=== PATIENT | female | born 1945 | race Caucasian/White ===

== ENCOUNTER → 2017-08-29 | Outpatient (CLI) | payer MEDICARE, BC ==
--- NOTE | 2017-08-29 18:03 | Diagnostic Imaging Report ---
PROCEDURE:CT CHEST WITHOUT CONTRAST COMPARISON:None. INDICATIONS:CHRONIC COUGH TECHNIQUE: Axial CT images of the chest were obtained from the apices through the adrenal glands. Coronal and sagittal reformations were made available for review. No intravenous contrast was administered. RADIATION DOSE: Total DLP: 421.5 mGy*cm Estimated effective dose: (DLP x 0.014 x size factor) mSv FINDINGS: Lungs: Right lung: Nodular apical pleural parenchymal thickening is present. The lung is diffusely hyperinflated with small areas of air trapping. Multiple ground glass nodules with and without central cavitation in the lower lobe and right middle lobe measuring up to 10 mm. There is diffuse bronchial wall thickening. The no evidence of lobular consolidation. Left lung: Diffusely hyperinflated with apical pleural-parenchymal thickening. Multiple nodules within without central cavitation measure up to 10 mm. These are mostly in the posterior lower lobe but also within the lingula. No lobar consolidation. Pleural based soft tissue nodule (image 32) in the left upper lobe measures 7 mm. Pleura:No evidence of pleural effusion or pneumothorax. Heart \T\ Mediastinum:The heart is normal in size with prominence of the pericardial fat pad. Coronary artery calcifications are present. The aortic arch is mildly ectatic. No pericardial effusion. The esophagus is normal. Lymph nodes:No enlarged axillary, supraclavicular lymph nodes. Upper mediastinal lymph nodes measure up to 17 mm. Right paratracheal lymph nodes measure to 10 mm. Lymph nodes in the AP window measure up to 1.5 x 1.1 cm. Subcarinal lymph node measures 10 mm in short axis. Thyroid/base of neck: Unremarkable. Upper abdomen:A low-attenuation lesion in the left lobe of the liver measures 7 x 7 mm. The visualized portion of the gallbladder, pancreas, spleen, adrenal glands, and kidneys are unremarkable Musculoskeletal: A compression deformity of T10 is about 30%. There is superior endplate compression deformities associated with Schmorl's nodes of T11 and T12. The spinal canal is widely patent. There are no lytic lesions. CONCLUSION: 1. Multiple cavitary and non-cavitary nodules in the lower lung zones. The differential is extensive and includes infection, such as bacterial or fungal pneumonia, vascular entities such as endocarditis or vasculitis, and autoimmune etiologies such as rheumatoid nodules or Robert's granulomatosis. Carcinoma is also included in the differential. 2. COPD. Bilateral apical pleural-parenchymal thickening should be monitored to confirm stability. 3. Prominent mediastinal lymph nodes are likely reactive. 4. Compression fracture of T10. 5. Low attenuating hepatic lesion is likely a cyst. Dictated by: Nicola Reyes M.D. on 08/29/2017 at 18:11 Electronically approved by: Nicola Reyes M.D. on 08/29/2017 at 18:11
== END ==
LOC: CT 16:31
PROVIDERS: ATTEND Family Medicine
DX: R05 Cough (principal)
CPT/HCPCS: 71250

== ENCOUNTER → 2023-01-29 | Outpatient (CLI) | payer MEDICARE, BC | LOC: CT 12:19 | PROVIDERS: ATTEND Family Medicine | DX: R05.9 Cough, unspecified (principal) | CPT/HCPCS: 71250 ==

== ENCOUNTER 2024-06-21 10:16 | Inpatient (IN) | payer MEDICARE, BC ==
[~2024-06-21] VITALS: Ht 165.1 cm; Wt 63.5 kg
[2024-06-21] MEDS ORDERED: SODIUM CHLORIDE 0.9% 1000ML 1,000 ML IV SCH (10:45)
[2024-06-21 10:54] LABS: BASOPHILS # (AUTO) 0.1 (0.0-0.1); BASOPHILS % 0.8 % (0.0-1.0); EOSINOPHILS # (AUTO) 0.3 (0.0-0.4); EOSINOPHILS % 3.1 % (0.0-6.0); HEMATOCRIT 35.6 % (34.2-44.1); HEMOGLOBIN 11.3 g/dL (12.0-16.0); MEAN CORPUSCULAR HEMOGLOBIN 28.6 pg (28-32); MEAN CORPUSCULAR HGB CONC 31.7 g/dL (31-35); MEAN CORPUSCULAR VOLUME 90.1 fL (81-99); MONOCYTES # (AUTO) 0.8 (0.2-0.8); MONOCYTES % 8.3 % (4.4-11.3); NEUTROPHILS # (AUTO) 7.8 (2.1-6.9); NEUTROPHILS % 77.4 % (38.7-80.0); PLATELET COUNT 591 x10e3/uL (140-360); RED BLOOD COUNT 3.95 x10e6/uL (3.6-5.1); RED CELL DISTRIBUTION WIDTH 14.6 % (11.7-14.4); WHITE BLOOD COUNT 10.11 x10e3/uL (4.8-10.8)
[2024-06-21 11:12] LABS: ALBUMIN 2.4 g/dL (3.5-5.0); ALBUMIN/GLOBULIN RATIO 0.5 (0.8-2.0); ANION GAP 15.4 mmol/L (8-16); BILIRUBIN,TOTAL 0.6 mg/dL (0.2-1.2); CALCIUM 8.9 mg/dL (8.4-10.2); CREATININE, SERUM 1.2 mg/dL (0.57-1.11); TOTAL PROTEIN 6.9 g/dL (6.5-8.1)
[2024-06-21 11:22] LABS: POTASSIUM 3.4 mmol/L (3.5-5.1)
[2024-06-21 12:09] LABS: B-TYPE NATRIURETIC PEPTIDE2 113.6 pg/mL (0-100)
[2024-06-21] MEDS: HYDROCORTISONE SOD SUCCINATE 100 MG VIAL IV STA (12:15)
[2024-06-21] MEDS: ENOXAPARIN SOD INJ 60 MG/0.6 ML SYR SC STA (12:20)
[2024-06-21 13:08] VITALS: PULSE 97; RESP 26; TEMP 99.1
[2024-06-21 13:23] VITALS: PULSE 96; RESP 18; O2SAT 96
[2024-06-21 13:44] LABS: INFLUENZAE A&B ANTIGEN (RAPID) NEGATIVE (NEGATIVE); RESPIRATORY SYNC. VIRUS NEGATIVE (NEGATIVE)
[2024-06-21] MEDS ORDERED: GUAIFENESIN/CODEINE 5 ML LIQD PO PRN (14:45)
[2024-06-21] MEDS ORDERED: BENZONATATE 100 MG CAP PO PRN (14:45)
[2024-06-21 15:00] VITALS: BP 165/80; PULSE 92; RESP 24; TEMP 98.1; O2SAT 98
[2024-06-21] MEDS ORDERED: GUAIFENESIN 600MG/DEXTROMETHORPHAN 30MG TABSR PO PRN (15:00)
[2024-06-21 15:46] LABS: INR 1.16; PROTHROMBIN TIME 15.4 seconds (11.9-14.5)
[2024-06-21] MEDS ORDERED: SODIUM CHLORIDE 0.9% 250ML 250 ML ONE (15:52)
[2024-06-21] MEDS: HYDROCORTISONE SOD SUCCINATE 100 MG VIAL IV ONE (16:12)
[2024-06-21] MEDS: DIPHENHYDRAMINE HCL INJ 50 MG/ML VIAL IV ONE (16:12)
[2024-06-21 16:40] VITALS: BP 165/80; PULSE 92; RESP 24; TEMP 98.1; O2SAT 98
[2024-06-21] MEDS ORDERED: IOPAMIDOL 370 MG/ML 100 ML INFUS..BTL INJ ONE (17:16)
[2024-06-21] MEDS ORDERED: LISINOPRIL2.5 MG PO (18:51)
[2024-06-21] MEDS ORDERED: FAMOTIDINE20 MG PO (18:51)
[2024-06-21] MEDS ORDERED: LEVOTHYROXINE75 MCG PO (18:51)
[2024-06-21] MEDS ORDERED: FAMOTIDINE 20 MG TAB PO PRN (19:30)
[2024-06-21] MEDS ORDERED: HYDRALAZINE HCL 20 MG/ML VIAL IV PRN (19:30)
[2024-06-21] MEDS ORDERED: BISACODYL 10 MG SUPP PR PRN (19:30)
[2024-06-21] MEDS ORDERED: ACETAMINOPHEN 325 MG TAB PO PRN (19:30)
[2024-06-21 20:00] VITALS: BP 135/79; PULSE 85; RESP 18; TEMP 97.7; O2SAT 97
[2024-06-21 21:00] VITALS: BP 135/79; PULSE 85; RESP 18; TEMP 97.7; O2SAT 97
[2024-06-21] MEDS: MELATONIN 5 MG TABLET PO SCH (22:01)
[2024-06-22] VITALS: BP 152/70; PULSE 84; RESP 18; TEMP 98.3; O2SAT 98
[2024-06-22 04:00] VITALS: BP 132/76; PULSE 72; RESP 20; TEMP 98.1; O2SAT 95
[2024-06-22] MEDS: DIPHENHYDRAMINE HCL 25 MG CAP PO ONE (05:00)
[2024-06-22 07:03] LABS: BASOPHILS % 0.2 % (0.0-1.0); HEMATOCRIT 34.5 % (34.2-44.1); LYMPHOCYTES # (AUTO) 0.8 (1.0-3.2); LYMPHOCYTES % 15.9 % (18.0-39.1); MEAN CORPUSCULAR HEMOGLOBIN 28.4 pg (28-32); MEAN CORPUSCULAR HGB CONC 31.9 g/dL (31-35); MEAN CORPUSCULAR VOLUME 88.9 fL (81-99); MONOCYTES # (AUTO) 0.6 (0.2-0.8); MONOCYTES % 11.2 % (4.4-11.3); NEUTROPHILS # (AUTO) 3.8 (2.1-6.9); NEUTROPHILS % 72.3 % (38.7-80.0); PLATELET COUNT 562 x10e3/uL (140-360); RED BLOOD COUNT 3.88 x10e6/uL (3.6-5.1); RED CELL DISTRIBUTION WIDTH 14.3 % (11.7-14.4); WHITE BLOOD COUNT 5.29 x10e3/uL (4.8-10.8)
[2024-06-22 07:32] LABS: ANION GAP 16.4 mmol/L (8-16); CALCIUM 8.8 mg/dL (8.4-10.2); CREATININE, SERUM 1.26 mg/dL (0.57-1.11)
[2024-06-22 07:42] LABS: POTASSIUM 3.4 mmol/L (3.5-5.1)
[2024-06-22 07:51] VITALS: PULSE 84; RESP 18; O2SAT 96
[2024-06-22 08:23] LABS: FERRITIN 573.13 ng/mL (4.63-204.00); THYROID STIMULATING HORMONE 0.883 uIU/mL (0.350-4.940)
[2024-06-22 08:25] VITALS: BP 166/80; PULSE 81; RESP 20; TEMP 97.4; O2SAT 98
[2024-06-22] MEDS: LEVOTHYROXINE SODIUM 75 MCG TAB PO SCH (08:59)
[2024-06-22] MEDS: SENNOSIDES 8.6 MG TAB PO SCH (09:00)
[2024-06-22] MEDS: DOCUSATE SODIUM 100 MG CAP PO SCH (09:00)
[2024-06-22] MEDS: LORAZEPAM 0.5 MG TAB PO ONE (09:21)
[2024-06-22] MEDS: LOSARTAN POTASSIUM 25 MG TAB PO SCH (12:15)
[2024-06-22] MEDS ORDERED: COZAAR25 MG PO (12:52)
[2024-06-22 13:28] VITALS: BP 141/65; PULSE 76; RESP 18; TEMP 97.5; O2SAT 97
[2024-06-22 13:54] LABS: BODY FLUID APPEARANCE SL.CLOUDY; BODY FLUID COLOR YELLOW; BODY FLUID TYPE PLEURAL; RBC,BODY FLUID 3000 cells/uL; WBC,BODY FLUID 6768 cells/uL
[2024-06-22 15:11] LABS: LYMPHOCYTES,BODY FLUID 8 %; MONO/MACROPHG,BODY FLUID 28 %; NEUTROPHILS,BODY FLUID 64 %; TOTAL CELLS COUNTED (DIFF) 100
[2024-06-23 19:09] LABS: TOTAL PROTEIN,BODY FLUID 4.1 g/dL
== END 2024-06-22 14:00 | disposition home or self-care (01) | DRG 187 ==
LOC: ER 10:21 → ERHOLD 12:27 → MED/SURG3 14:38 → OBSVTOIN 06-22 08:51
PROVIDERS: ADMIT Internal Medicine; ATTEND Internal Medicine
PROC: 0W9B3ZZ Drainage of Left Pleural Cavity, Percutaneous Approach (ICD-10-PCS; principal; 2024-06-22)
DX: J90 Pleural effusion, not elsewhere classified (principal); J84.9 Interstitial pulmonary disease, unspecified; R13.12 Dysphagia, oropharyngeal phase; D64.9 Anemia, unspecified; I10 Essential (primary) hypertension; E78.2 Mixed hyperlipidemia; R05.3 Chronic cough; E03.9 Hypothyroidism, unspecified; R63.4 Abnormal weight loss; K21.9 Gastro-esophageal reflux disease without esophagitis; R00.0 Tachycardia, unspecified; Z11.52 Encounter for screening for COVID-19; R22.0 Localized swelling, mass and lump, head; Z68.23 Body mass index [BMI] 23.0-23.9, adult; T50.8X5A Adverse effect of diagnostic agents, initial encounter; Z79.890 Hormone replacement therapy; Z91.041 Radiographic dye allergy status; Z88.0 Allergy status to penicillin; Z88.1 Allergy status to other antibiotic agents; Z88.2 Allergy status to sulfonamides; Z88.5 Allergy status to narcotic agent; Z88.8 Allergy status to other drugs, medicaments and biological substances; Z91.040 Latex allergy status
CPT/HCPCS: 32555; 36415; 71045; 71260; 74470; 80048; 80053; 82040; 82607; 82728; 82945; 83540; 83605; 83615; 83880; 84157; 84443; 84466; 84478; 84484; 85025; 85379; 85610; 87040; 87070; 87205; 87400; 87420; 88112; 88305; 89051; 93005; 94799; 99284; G0378; J1200; J1650; J1720; J7050; Q9967; U0002

== ENCOUNTER → 2024-07-06 | Outpatient (REF) | payer MEDICARE, BC ==
[~2024-07-06] MED LIST: COZAAR25 MG PO; FAMOTIDINE20 MG PO; LEVOTHYROXINE75 MCG PO; LISINOPRIL2.5 MG PO
== END ==
LOC: RAD 12:22
PROVIDERS: ATTEND Family Medicine
DX: J90 Pleural effusion, not elsewhere classified (principal); Z09 Encounter for follow-up examination after completed treatment for conditions other than malignant neoplasm
CPT/HCPCS: 71046

== ENCOUNTER → 2024-07-28 | Day surgery (SDC) | payer MEDICARE, BC ==
[~2024-07-28] MED LIST changes: +AMLODIPINE BESYL5 MG PO; +ASPIRIN81 MG PO; +DEXAMETHASONE SOD PHOS INJ 4 MG/ML SDV ONE; +FENTANYL CITRATE/PF 100MCG/2 ML INJ ONE; +LIDOCAINE HCL 2% LOCAL 20 ML VIAL ONE; +LIDOCAINE HCL 2% LOCAL INJ 5 ML SDV VIAL INJ ONE; +ONDANSETRON HCL INJ 2MG/ML 2ML 2 MG/ML VIAL ONE; +PROPOFOL IV EMULSION 10 MG/ML 20 ML VIAL ONE; +ROCURONIUM BROMIDE 1 ML IV ONE
[2024-07-28 07:47] LABS: BASOPHILS # (AUTO) 0.1 (0.0-0.1); BASOPHILS % 0.8 % (0.0-1.0); EOSINOPHILS # (AUTO) 0.2 (0.0-0.4); EOSINOPHILS % 1.1 % (0.0-6.0); HEMATOCRIT 36.5 % (34.2-44.1); HEMOGLOBIN 11.4 g/dL (12.0-16.0); LYMPHOCYTES # (AUTO) 1.2 (1.0-3.2); LYMPHOCYTES % 7.7 % (18.0-39.1); MEAN CORPUSCULAR HEMOGLOBIN 28.1 pg (28-32); MEAN CORPUSCULAR HGB CONC 31.2 g/dL (31-35); MEAN CORPUSCULAR VOLUME 89.9 fL (81-99); MONOCYTES # (AUTO) 1.5 (0.2-0.8); MONOCYTES % 9.1 % (4.4-11.3); NEUTROPHILS # (AUTO) 13.1 (2.1-6.9); NEUTROPHILS % 80.7 % (38.7-80.0); PLATELET COUNT 620 x10e3/uL (140-360); RED BLOOD COUNT 4.06 x10e6/uL (3.6-5.1); RED CELL DISTRIBUTION WIDTH 15.8 % (11.7-14.4)
[2024-07-28] MEDS: ONDANSETRON HCL INJ 2MG/ML 2ML 2 MG/ML VIAL ONE (11:00)
[2024-07-28 11:50] VITALS: BP 158/81; PULSE 97; RESP 20; O2SAT 95
== END | disposition home or self-care (01) ==
LOC: ENDO 07:07
PROVIDERS: ATTEND Internal Medicine Critical Care Medicine
DX: J84.113 Idiopathic non-specific interstitial pneumonitis (principal); R05.9 Cough, unspecified; K20.90 Esophagitis, unspecified without bleeding; I10 Essential (primary) hypertension; E03.9 Hypothyroidism, unspecified; N39.0 Urinary tract infection, site not specified; G89.29 Other chronic pain; Z88.0 Allergy status to penicillin; Z88.2 Allergy status to sulfonamides; Z88.8 Allergy status to other drugs, medicaments and biological substances; Z88.6 Allergy status to analgesic agent; Z88.1 Allergy status to other antibiotic agents; Z91.040 Latex allergy status; Z79.82 Long term (current) use of aspirin; Z79.899 Other long term (current) drug therapy
CPT/HCPCS: 31624; 31628; 36415; 71045; 85025; 88112; 88305; 93005; J1100; J2405; J2704; J3010; 31622; J2003

== ENCOUNTER → 2024-08-26 | Outpatient (REF) | payer MEDICARE, BC ==
[~2024-08-26] MED LIST changes: -DEXAMETHASONE SOD PHOS INJ 4 MG/ML SDV ONE; -FENTANYL CITRATE/PF 100MCG/2 ML INJ ONE; -LIDOCAINE HCL 2% LOCAL 20 ML VIAL ONE; -LIDOCAINE HCL 2% LOCAL INJ 5 ML SDV VIAL INJ ONE; -ONDANSETRON HCL INJ 2MG/ML 2ML 2 MG/ML VIAL ONE; -PROPOFOL IV EMULSION 10 MG/ML 20 ML VIAL ONE; -ROCURONIUM BROMIDE 1 ML IV ONE
== END ==
LOC: RAD 14:30
PROVIDERS: ATTEND Internal Medicine Critical Care Medicine
DX: R05.9 Cough, unspecified (principal)
CPT/HCPCS: 71046

== ENCOUNTER 2025-04-25 09:17 | Emergency (ER) | payer MEDICARE, BC ==
[~2025-04-25] VITALS: Ht 160 cm; Wt 49.9 kg
[2025-04-25 09:23] VITALS: TEMP 97.5
[2025-04-25] MEDS ORDERED: KETOROLAC TROMETHAMINE 30 MG/ML VIAL IM STA (09:37)
[2025-04-25 10:28] LABS: BASOPHILS % 1.1 % (0.0-1.0); EOSINOPHILS % 4.8 % (0.0-6.0); LYMPHOCYTES % 18.0 % (18.0-39.1); MONOCYTES % 11.7 % (4.4-11.3); NEUTROPHILS % 64.3 % (38.7-80.0); RED CELL DISTRIBUTION WIDTH 13.4 % (11.7-14.4)
[2025-04-25 11:02] LABS: EST GLOMERULAR FILTRATION RATE 33.0 ML/MIN (>=60)
[2025-04-25] MEDS: KETOROLAC TROMETHAMINE 30 MG/ML VIAL IV STA (11:19)
[2025-04-25] MEDS: ONDANSETRON HCL INJ 2MG/ML 2ML 2 MG/ML VIAL IV STA (11:19)
[2025-04-25 11:56] VITALS: PULSE 70; RESP 17
[2025-04-25] MEDS ORDERED: Morphine 4mg INJECTION 4 MG/ML INJ IV ONE (12:00)
[2025-04-25] MEDS ORDERED: ONDANSETRON HCL INJ 2MG/ML 2ML 2 MG/ML VIAL IV STA (12:01)
[2025-04-25 12:09] LABS: LEUKOCYTE ESTERASE ,URINE NEGATIVE (NEGATIVE); PROTEIN,URINE DIPSTICK 1+ (NEGATIVE); URINE UROBILINOGEN 0.2 mg/dL (0.2 - 1)
[2025-04-25] MEDS ORDERED: KETOROLAC TROME10 MG PO (12:12)
[2025-04-25] MEDS ORDERED: ACETAMINOPHEN-1 EAC3 PO (12:36)
[2025-04-25] MEDS ORDERED: ONDANSETRON ODT4 MG PO (12:36)
[2025-04-25 12:38] VITALS: BP 168/76; PULSE 70; RESP 17; O2SAT 97
[2025-04-25 12:39] LABS: EPITHELIAL CELLS,URINE RARE /LPF; WBC,URINE (MAN) 0-5 /HPF (0-5)
[2025-04-25 13:32] LABS: BASOPHILS % (MANUAL) 1 % (0-1.5); EOSINOPHILS % (MANUAL) 5 % (0-7); LYMPHOCYTES % (MANUAL) 17 % (19-48); MONOCYTES % (MANUAL) 12 % (3.4-9.0); NEUTROPHILS % (MANUAL) 63 % (40-74); PLATELET ESTIMATE ADEQUATE; PLATELET MORPHOLOGY COMMENT NORMAL; RBC MORPHOLOGY COMMENT NORMAL; REACTIVE LYMPHOCYTES 2
== END 2025-04-25 12:39 | disposition home or self-care (01) ==
LOC: ER 09:23
DX: M54.9 Dorsalgia, unspecified (principal); E87.1 Hypo-osmolality and hyponatremia; N28.9 Disorder of kidney and ureter, unspecified; M47.896 Other spondylosis, lumbar region; I10 Essential (primary) hypertension; E78.5 Hyperlipidemia, unspecified
CPT/HCPCS: 36415; 71045; 74176; 80053; 81001; 83690; 85025; 99284; J1885; J2405

== ENCOUNTER 2025-04-28 13:00 | Emergency (ER) | payer MEDICARE, BC ==
[~2025-04-28] VITALS: Ht 162.6 cm; Wt 49.9 kg
[~2025-04-28 13:00] MED LIST changes: +ACETAMINOPHEN-1 EAC3 PO; +KETOROLAC TROME10 MG PO; +ONDANSETRON ODT4 MG PO
[2025-04-28 13:07] VITALS: PULSE 81; RESP 17; TEMP 97.6
[2025-04-28] MEDS ORDERED: METHOCARBAMOL500 MG PO (14:45)
[2025-04-28] MEDS ORDERED: ONDANSETRON HCL 4 MG ORAL DISINTEGRATING TAB PO ONE (14:45)
[2025-04-28] MEDS: KETOROLAC TROMETHAMINE 30 MG/ML VIAL IM STA (14:49)
[2025-04-28] MEDS: DIAZEPAM 2 MG TAB PO ONE (14:49)
[2025-04-28 15:28] VITALS: BP 158/89; PULSE 73; RESP 15; TEMP 98.4; O2SAT 97
[2025-04-28] MEDS ORDERED: SODIUM CHLORIDE 0.9% 500ML 500 ML ONE (16:05)
== END 2025-04-28 15:15 | disposition home or self-care (01) ==
LOC: ER 13:25
DX: M54.6 Pain in thoracic spine (principal); M54.50 Low back pain, unspecified; G89.29 Other chronic pain; I10 Essential (primary) hypertension; E78.5 Hyperlipidemia, unspecified
CPT/HCPCS: 99283; J1885; J7040; Q0162

== ENCOUNTER 2025-04-29 07:44 | Emergency (ER) | payer MEDICARE, BC ==
[~2025-04-29] VITALS: Ht 162.6 cm; Wt 49.9 kg
[~2025-04-29 07:44] MED LIST changes: +METHOCARBAMOL500 MG PO
[2025-04-29 07:54] VITALS: TEMP 98.7
[2025-04-29 08:33] LABS: BASOPHILS % 0.5 % (0.0-1.0); EOSINOPHILS % 0.4 % (0.0-6.0); LYMPHOCYTES % 9.1 % (18.0-39.1); MONOCYTES % 5.6 % (4.4-11.3); NEUTROPHILS % 83.9 % (38.7-80.0); RED CELL DISTRIBUTION WIDTH 13.2 % (11.7-14.4)
[2025-04-29 08:57] LABS: EST GLOMERULAR FILTRATION RATE 27.0 ML/MIN (>=60)
[2025-04-29] MEDS ORDERED: IOPAMIDOL 370 MG/ML 100 ML INFUS..BTL INJ ONE (09:08)
[2025-04-29] MEDS ORDERED: SODIUM CHLORIDE 0.9% 1000ML 1,000 ML ONE (09:10)
[2025-04-29] MEDS: SODIUM CHLORIDE 0.9% 1000ML 1,000 ML IV SCH (09:24)
[2025-04-29 09:30] LABS: LEUKOCYTE ESTERASE ,URINE NEGATIVE (NEGATIVE); PROTEIN,URINE DIPSTICK 2+ (NEGATIVE); URINE UROBILINOGEN 0.2 mg/dL (0.2 - 1)
[2025-04-29 09:32] LABS: AMPHETAMINES SCREEN,URINE NEGATIVE (NEGATIVE); CANNABINOIDS SCREEN,URINE NEGATIVE (NEGATIVE); COCAINE SCREEN,URINE NEGATIVE (NEGATIVE); METHADONE SCREEN, URINE NEGATIVE (NEGATIVE); OPIATES SCREEN,URINE NEGATIVE (NEGATIVE)
[2025-04-29 09:47] LABS: EPITHELIAL CELLS,URINE RARE /LPF; WBC,URINE (MAN) 0-5 /HPF (0-5)
[2025-04-29] MEDS: HALOPERIDOL LACTATE 5 MG/ML VIAL IV ONE (09:59)
[2025-04-29] MEDS: LORAZEPAM INJ 2 MG/ML VIAL IV ONE (10:22)
[2025-04-29 12:01] VITALS: BP 160/76; PULSE 85
[2025-04-29] MEDS: LABETALOL HCL 5 MG/ML 20ML VIAL IV STA (12:01)
[2025-04-29 12:48] VITALS: PULSE 90; RESP 24; O2SAT 97
== END 2025-04-29 13:13 | disposition short-term general hospital (02) ==
LOC: ER 07:52
DX: I60.9 Nontraumatic subarachnoid hemorrhage, unspecified (principal); G89.29 Other chronic pain; M54.9 Dorsalgia, unspecified; I10 Essential (primary) hypertension; E78.5 Hyperlipidemia, unspecified; Z88.6 Allergy status to analgesic agent; Z88.1 Allergy status to other antibiotic agents
CPT/HCPCS: 36415; 70450; 80053; 80307; 81001; 82550; 83605; 85025; 87040; 99284; J1630; J2060; J3490; J7030; Q9967